=== PATIENT | female | born 1995 | race Caucasian/White ===

== ENCOUNTER 2019-08-21 03:41 | Inpatient (IN) | payer BC ==
[~2019-08-21 03:41] MED LIST: Bupivacaine 0.25% 10 ML SDV ONE
[2019-08-21] MEDS ORDERED: Sodium Chloride 0.9% 10 ML Syringe FLUSH PRN (04:12)
[2019-08-21] MEDS ORDERED: Lidocaine 1% 50 ML MDV INJECT ONE (04:12)
[2019-08-21] MEDS ORDERED: Calcium Carbonate 500 MG Tab.Chew PO PRN (04:12)
[2019-08-21] MEDS ORDERED: Lactated Ringers 1,000 ML IV SCH (04:15)
[2019-08-21] MEDS ORDERED: Oxytocin/Lactated Ringers 10 UNIT/1,000 ML BAG IV SCH ×2 (04:15)
[2019-08-21] MEDS ORDERED: Bupivacaine/fentaNYL/NS 100 ML Bag EPIDUR PRN (07:01)
[2019-08-21] MEDS ORDERED: ePHEDrine 50 MG/ML SDV IVPUSH PRN (07:01)
[2019-08-21] MEDS ORDERED: diphenhydrAMINE 50 MG/ML SDV IVPUSH PRN (07:01)
[2019-08-21] MEDS ORDERED: fentaNYL 100 MCG/2 ML SDV EPIDUR PRN (07:01)
[2019-08-21] MEDS: Nalbuphine 10 MG/ML Syringe IVPUSH PRN ×2 (12:51→16:05)
--- NOTE | 2019-08-21 14:09 | PCM.LDHP ---
L&D History of Present Illness - General Date of Service: 08/21/19 Admit Problem/Dx: Patient Status Order with Admit Dx/Problem 08/21/19 03:49 Patient Status [ADT] Routine Admission Diagnosis/Problem Admission Diagnosis/Problem 08/21/19 13:57 Lisa is a 24-year-old 1 para 0 white female at 7 weeks gestational age with an SHAR of 08/20/2019 who was admitted in the a.m. of 08/21/2019 with SROM and early labor. Source of Information: Patient History Limitations: Reports: No Limitations - History of Present Illness Introduction:: Lisa is a 24-year-old 1 para 0 white female at 7 weeks gestational age with an SHAR of 08/20/2019 who was admitted in the a.m. of 08/21/2019 with SROM and early labor.She reports having apparently had spontaneous rupture membranes at approximately 03 30 this a.m. Gush of fluids followed by continuous leakage thereafter. Upon evaluation in the hospital was noted to have pooling and significant amount of grossly ruptured membrane leakage. She was brandy mildly. Baby has been active. heart tones reassuring. 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 Her SHAR of 08/20/2019 was determined by a certain laststarting 11/13/2018 and supported by at least 2 ultrasounds done during the course of the . Patient denies any STI's, abnormal Pap smears. She had menarche at age 12. Cycles every 30 days. Not using any control at this time conception. Last menstrual period started 11/13/2018 was normal in regard. course. Patient had posterior her care. As she was leaving the time. The first visit was at 8 weeks and 3 days. Ultrasound was performed at 10 weeks and 3 days was consistent with her LMP dating giving an SHAR of 08/20/2019. She is seen on a regular basis. Her weight gain was from 136.8 pounds to 177.4 pounds for approximately 20 pound increase. Her fundal height growth was appropriate. Patient's group B strep screen is negative. She was scheduled for induction on 08/26/2019. She plans to breast-feed. She is okay with epidural in labor and delivery. She does not know the gender of the baby. labs: Blood is AB-. Negative antibody screen. Her hemoglobin at first visit was 13.6 g/dL with platelets at 242,000. Pap smear was negative. Patient is vaccinated for varicella. She is rubella immune. RPR is nonreactive. Urine culture was negative. Hepatitis B surface antigen and HIV assays were both negative. Chlamydia and gonorrhea tests were both negative. Second trimester labs showed hemoglobin of 12.6 g/dL and platelets of 227,000. One- hour GTT was normal at 106. Her antibody screen is negative and patient received her anti-DNA immunoglobulin on 05/31/2019 at approximately 28 weeks. Group B strep screen is negative. Allergies: None Medications: vitamins Past medical history: 1. Fibrocystic breast. Past surgical history: Unremarkable Family history: Mother is alive and well with a history of skin cancer. Father is alive but has Alzheimer's at age 55. Brothers alive and well. Maternal grandmother is at age 69 from breast cancer diagnosed at age 65. Maternal grandfather is alive but has a history of prostate cancer. Paternal grandmother is secondary to history of strokes. Was a smoker. Paternal grandfather is alive, has epilepsy and has had some strokes recently diagnosed. He is in his 80s. There is no known family history of bleeding, clotting disorders. And no anesthesia related issues or related issues. One maternal aunt with history of cervical cancer. Social history: Patient is . is Brett. They recently moved to [place] approximately 1 month ago. She does not use any significant loss of alcohol, drugs or tobacco. Review of systems: In general patient has no complaints. Patient having minimal contractions. Babies been active. Has had findings and symptoms consistent with SROM. Skin: Negative Lungs: No infectious symptoms or shortness of breath Cardiovascular: No chest pain or exercise intolerance Breasts: changes noted.. GI: Negative : changes. Musculoskeletal: Negative Neurological: Negative In general the patient is well-developed, well-nourished, pleasant female of stated age in no acute distress. She is alert 92�3 and is pleasant. Skin is warm dry without lesions. HEENT, neck and back within normal limits. Lungs are clear with good breath sounds in all lung linares. Cardiovascular exam shows regular and rhythm without murmurs. Breast exam is deferred having been done the first pill visit found to be normal and is not repeated at this time. She plans to breast-feed. Abdomen is gravid with last fundal height clinic at 36 weeks centimeters. Genital exam shows cervix to be 3 cm, 80% effaced, soft, mid position, -3 station. Extremities and neurological exam are grossly within normal limits. 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: - Past Surgical History HEENT Surgical History: Reports: Oral Surgery Other HEENT Surgeries/Procedures: [place] teeth-2011 Social & Family History - Family History Family Medical History: Noncontributory - Tobacco Use Smoking Status *Q: Never Smoker Second Hand Smoke Exposure: No - Recreational Drug Use Recreational Drug Use: No H&P Review of Systems - Review of Systems: Review Of Systems: See Below L&D Exam - Exam Exam: See Below - Vital Signs Vital Signs: Last Vital Signs Temp 36.2 C 08/21/19 03:49 Pulse 94 08/21/19 03:49 Resp 16 08/21/19 03:49 BP 140/85 08/21/19 03:49 Pulse Ox Weight: 72.393 kg - Patient Data Lab Results Last 24 hrs: Laboratory Results - last 24 hr 08/21/19 Range/Units 04:28 WBC 9.70 (3.98-10.04) K/mm3 RBC 3.66 L (3.98-5.22) M/mm3 Hgb 12.7 (11.2-15.7) gm/dl Hct 37.1 (34.1-44.9) % MCV 101.4 H (79.4-94.8) fl MCH 34.7 H (25.6-32.2) pg MCHC 34.2 (32.2-35.5) g/dl RDW Std Deviation 45.0 (36.4-46.3) fL Plt Count 201 (182-369) K/mm3 MPV 9.3 L (9.4-12.3) fl Neut % (Auto) 57.4 (34.0-71.1) % Lymph % (Auto) 31.6 (19.3-51.7) % [place] % (Auto) 10.0 (4.7-12.5) % Eos % (Auto) 0.7 (0.7-5.8) Baso % (Auto) 0.2 (0.1-1.2) % Neut # (Auto) 5.56 (1.56-6.13) K/mm3 Lymph # (Auto) 3.07 (1.18-3.74) K/mm3 [place] # (Auto) 0.97 H (0.24-0.36) K/mm3 Eos # (Auto) 0.07 (0.04-0.36) K/mm3 Baso # (Auto) 0.02 (0.01-0.08) K/mm3 Result Diagrams: 08/21/19 04:28 Problem List Initiated/Reviewed/Updated: Yes Orders Last 24hrs: Active Orders 24 hr Category Date Time Status Patient Status [ADT] Routine ADT 08/21/19 03:49 Active Activity as Tolerated [RC] PFP Care 08/21/19 04:13 Active Communication Order [RC] ASDIRECTED Care 08/21/19 04:13 Active Communication Order [RC] ASDIRECTED Care 08/21/19 07:02 Active Cooling Warming Measures [RC] ASDIRECTED Care 08/21/19 07:02 Active Notify Provider [RC] ASDIRECTED Care 08/21/19 07:01 Active Notify Provider [RC] ASDIRECTED Care 08/21/19 07:02 Active Notify Provider [RC] PFP Care 08/21/19 04:13 Active Notify Provider [RC] PRN Care 08/21/19 04:13 Active Oxygen Therapy [RC] ASDIRECTED Care 08/21/19 07:02 Active Peripheral IV Care [RC] . DIRECTED Care 08/21/19 04:13 Active Pulse Oximetry [RC] ASDIRECTED Care 08/21/19 07:02 Active Vital Signs [RC] ASDIRECTED Care 08/21/19 07:02 Active Vital Signs [RC] PER UNIT ROUTINE Care 08/21/19 04:13 Active Regular Diet [DIET] Diet 08/21/19 Breakfast Active RAPID PLASMA REAGIN,RPR [CHEM] Routine Lab 08/21/19 04:28 Received Bupivacaine/fentaNYL/NS [fentaNYL/Bupivacaine/NS 2 MCG- Med 08/21/19 07:01 Active 0.125% 100 ML] 100 ml EPIDUR ASDIRECTED PRN Calcium Carbonate [Tums] Med 08/21/19 04:12 Active 1,000 mg PO Q2H PRN Lactated Ringers [Ringers, Lactated] 1,000 ml Med 08/21/19 04:15 Active IV ASDIRECTED Nalbuphine [Nubain] Med 08/21/19 04:12 Active 10 mg IVPUSH Q2H PRN Oxytocin/Lactated Ringers [Pitocin in LR 10 Units/1,000 Med 08/21/19 04:15 Active ML] 10 unit in 1,000 ml IV .CONTINUOUS Oxytocin/Lactated Ringers [Pitocin in LR 10 Units/1,000 Med 08/21/19 04:15 Active ML] 10 unit in 1,000 ml IV TITRATE Sodium Chloride 0.9% [Saline Flush] Med 08/21/19 04:12 Active 10 ml FLUSH ASDIRECTED PRN diphenhydrAMINE [Benadryl] Med 08/21/19 07:01 Active 25 mg IVPUSH Q6H PRN ePHEDrine [ePHEDrine sulfate] Med 08/21/19 07:01 Active 5 mg IVPUSH ASDIRECTED PRN fentaNYL [Sublimaze] Med 08/21/19 07:01 Active 100 mcg EPIDUR Q3H PRN Electronic Heart Tones Ext w TOCO [WOMSER] Oth 08/21/19 04:13 Ordered Routine Electronic Heart Tones Internal [WOMSER] Per Unit Oth 08/21/19 04:13 Ordered Routine Peripheral IV Insertion Adult [OM.PC] Routine Oth 08/21/19 04:13 Ordered Resuscitation Status Routine Resus Stat 08/21/19 03:49 Ordered Medication Orders Calcium Carbonate/Glycine (Tums) 1,000 mg PO Q2H PRN PRN Reason: Indigestion Diphenhydramine HCl (Benadryl) 25 mg IVPUSH Q6H PRN PRN Reason: pruritis Stop: 08/22/19 23:00 Ephedrine Sulfate (Ephedrine Sulfate) 5 mg IVPUSH ASDIRECTED PRN PRN Reason: Hypotension Stop: 08/22/19 23:00 Fentanyl (Sublimaze) 100 mcg EPIDUR Q3H PRN PRN Reason: Pain Stop: 08/22/19 23:00 Fentanyl/Bupivacaine HCl (Fentanyl/Bupivacaine/Ns 2 Mcg-0.125% 100 Ml) 100 ml EPIDUR ASDIRECTED PRN PRN Reason: Pain Stop: 08/22/19 23:00 Lactated Ringer's (Ringers, Lactated) 1,000 mls @ 100 mls/hr IV ASDIRECTED STEVENSON Last Admin: 08/21/19 09:38 Dose: 100 mls/hr Oxytocin/Lactated Ringer's (Pitocin In Lr 10 Units/1,000 Ml) 10 unit in 1,000 mls @ 12 mls/hr IV TITRATE STEVENSON; Protocol Last Admin: 08/21/19 09:38 Dose: 2 munits/min, 12 mls/hr Oxytocin/Lactated Ringer's (Pitocin In Lr 10 Units/1,000 Ml) 10 unit in 1,000 mls @ 500 mls/hr IV .CONTINUOUS STEVENSON Nalbuphine HCl (Nubain) 10 mg IVPUSH Q2H PRN PRN Reason: Pain Last Admin: 08/21/19 12:51 Dose: 10 mg Sodium Chloride (Saline Flush) 10 ml FLUSH ASDIRECTED PRN PRN Reason: Keep Vein Open Assessment/Plan Comment:: 1. 40-1/7 week intrauterine , SROM with clear amniotic fluid resulting , early labor. 2. Group B strep screen negative 3. Patient is okay with epidural in labor and delivery 4. Patient has a B- blood therefore is a candidate for Rh immunoglobulin therapy if baby proves to be Rh+. 5. Patient is rubella immune. 6. Patient plans to breast-feed. Plan: 1. Possible Pitocin augmentation as indicated 2. Routine labor care 3. Epidural when necessary 4. Support breast-feeding decision 5. CBC and RPR on admission per protocol.
--- NOTE | 2019-08-21 14:18 | PCM.PREANE ---
Preanesthetic Assessment - Procedure Proposed Procedure: Epidural - Anesthesia/Transfusion/Family Hx Anesthesia History: No Prior Anesthesia Family History of Anesthesia Reaction: No Transfusion History: No Prior Transfusion(s) - Review of Systems General: Fatigue (Labor) Pulmonary: No Symptoms Cardiovascular: No Symptoms 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: Abdominal Pain (Labor) Neurological: No Symptoms Other: Reports: None - Physical Assessment Vital Signs: Last Vital Signs Temp 36.2 C 08/21/19 03:49 Pulse 94 08/21/19 03:49 Resp 16 08/21/19 03:49 BP 140/85 08/21/19 03:49 Pulse Ox Height: 1.7 m Weight: 72.393 kg ASA Class: 2 Mental Status: Alert & Oriented x3 Airway Class: Mallampati = 2 Dentition: Reports: Normal Dentition Thyro-Mental Finger Breadths: 3 Mouth Opening Finger Breadths: 3 ROM/Head Extension: Full Lungs: Clear to Auscultation, Normal Respiratory Effort Cardiovascular: Regular Rate, Regular Rhythm - Lab Values: Laboratory Last Values WBC 9.70 K/mm3 (3.98-10.04) 08/21/19 04:28 RBC 3.66 M/mm3 (3.98-5.22) L 08/21/19 04:28 Hgb 12.7 gm/dl (11.2-15.7) 08/21/19 04:28 Hct 37.1 % (34.1-44.9) 08/21/19 04:28 MCV 101.4 fl (79.4-94.8) H 08/21/19 04:28 MCH 34.7 pg (25.6-32.2) H 08/21/19 04:28 MCHC 34.2 g/dl (32.2-35.5) 08/21/19 04:28 RDW Std Deviation 45.0 fL (36.4-46.3) 08/21/19 04:28 Plt Count 201 K/mm3 (182-369) 08/21/19 04:28 MPV 9.3 fl (9.4-12.3) L 08/21/19 04:28 Neut % (Auto) 57.4 % (34.0-71.1) 08/21/19 04:28 Lymph % (Auto) 31.6 % (19.3-51.7) 08/21/19 04:28 [place] % (Auto) 10.0 % (4.7-12.5) 08/21/19 04:28 Eos % (Auto) 0.7 (0.7-5.8) 08/21/19 04:28 Baso % (Auto) 0.2 % (0.1-1.2) 08/21/19 04:28 Neut # (Auto) 5.56 K/mm3 (1.56-6.13) 08/21/19 04:28 Lymph # (Auto) 3.07 K/mm3 (1.18-3.74) 08/21/19 04:28 [place] # (Auto) 0.97 K/mm3 (0.24-0.36) H 08/21/19 04:28 Eos # (Auto) 0.07 K/mm3 (0.04-0.36) 08/21/19 04:28 Baso # (Auto) 0.02 K/mm3 (0.01-0.08) 08/21/19 04:28 - Allergies Allergies/Adverse Reactions: Allergies Allergy/AdvReac Type Severity Reaction Status Date / Time No Known Allergies Allergy Verified 08/21/19 06:08 - Anesthesia Plan Pre-Op Medication Ordered: None - Acknowledgements Anesthesia Type Planned: Epidural Pt an Appropriate Candidate for the Planned Anesthesia: Yes Alternatives and Risks of Anesthesia Discussed w Pt/Guardian: Yes Pt/Guardian Understands and Agrees with Anesthesia Plan: Yes PreAnesthesia Questionnaire - Past Health History Medical/Surgical History: Denies Medical/Surgical History 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 History: Reports: GERD 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: - Past Surgical History HEENT Surgical History: Reports: Oral Surgery Other HEENT Surgeries/Procedures: [place] teeth-2011 - SUBSTANCE USE Smoking Status *Q: Never Smoker Second Hand Smoke Exposure: No Recreational Drug Use History: No - HOME MEDS Home Medications: Home Meds Pnv No.95/Ferrous Fum/Folic AC [ Vitamins Tablet] 1 tab PO DAILY [History] - CURRENT (IN HOUSE) MEDS Current Meds: Current Medications Calcium Carbonate/Glycine (Tums) 1,000 mg PO Q2H PRN PRN Reason: Indigestion Diphenhydramine HCl (Benadryl) 25 mg IVPUSH Q6H PRN PRN Reason: pruritis Stop: 08/22/19 23:00 Ephedrine Sulfate (Ephedrine Sulfate) 5 mg IVPUSH ASDIRECTED PRN PRN Reason: Hypotension Stop: 08/22/19 23:00 Fentanyl (Sublimaze) 100 mcg EPIDUR Q3H PRN PRN Reason: Pain Stop: 08/22/19 23:00 Fentanyl/Bupivacaine HCl (Fentanyl/Bupivacaine/Ns 2 Mcg-0.125% 100 Ml) 100 ml EPIDUR ASDIRECTED PRN PRN Reason: Pain Stop: 08/22/19 23:00 Lactated Ringer's (Ringers, Lactated) 1,000 mls @ 100 mls/hr IV ASDIRECTED STEVENSON Last Admin: 08/21/19 09:38 Dose: 100 mls/hr Oxytocin/Lactated Ringer's (Pitocin In Lr 10 Units/1,000 Ml) 10 unit in 1,000 mls @ 12 mls/hr IV TITRATE STEVENSON; Protocol Last Admin: 08/21/19 09:38 Dose: 2 munits/min, 12 mls/hr Oxytocin/Lactated Ringer's (Pitocin In Lr 10 Units/1,000 Ml) 10 unit in 1,000 mls @ 500 mls/hr IV .CONTINUOUS STEVENSON Nalbuphine HCl (Nubain) 10 mg IVPUSH Q2H PRN PRN Reason: Pain Last Admin: 08/21/19 12:51 Dose: 10 mg Sodium Chloride (Saline Flush) 10 ml FLUSH ASDIRECTED PRN PRN Reason: Keep Vein Open Discontinued Medications Lidocaine HCl (Xylocaine 1%) 50 ml INJECT ONETIME ONE Stop: 08/21/19 04:13
[2019-08-21] MEDS ORDERED: Lidocaine 1% 50 ML MDV ONE (16:46)
--- NOTE | 2019-08-21 17:43 | PCM.SN.2 ---
- Free Text/Narrative Note: Delivery note: Lisa is a 24-year-old 1 para 0 white female at 7 weeks gestational age with an SHAR of 08/20/2019 who was admitted in the a.m. of 08/21/2019 with SROM and early labor.She reports having apparently had spontaneous rupture membranes at approximately 03 30 this a.m. Gush of fluids followed by continuous leakage thereafter. Upon evaluation in the hospital was noted to have pooling and significant amount of grossly ruptured membrane leakage. She was brandy mildly. Baby has been active. heart tones reassuring. She progressed to complete cervical dilation by approximately 1630 hrs. She began pushing and pushed for approximately 35 minutes at which time she delivered a viable, mckeon, female infant with Apgars of 8 and 9, length of 19.25 inches, a weight of 2960 g (pounds, 8 ounces) in a left occiput anterior position at 1705 hrs. on 08/21/2019.. Baby was placed on mom's abdomen. Nose and mouth were bulb suctioned the baby was dried and warmed. Pitocin was increased to 500 mL an hour to facilitate increase in uterine tone and decreased likelihood of bleeding. The umbilical cord was allowed to pulsate times approximately 2-3 minutes and then was clamped �2 and cut by the baby's father Brett. Umbilical cord had 3 blood vessels present within it. Cord blood was obtained. The patient is noted to have a second-degree perineal laceration which was repaired in routine fashion using 3-0 Monocryl suture. The area was anesthetized with lidocaine 1%�approximately 8 mL total. Lidocaine was given prior to the delivery. The placenta delivered in a Weeks presentation at 1715 hrs., appeared intact and complete and was just guarded per patient desire. Patient plans to breast-feed. Her blood loss was 100 mL. Condition: Good.
[2019-08-21] MEDS ORDERED: Acetaminophen 325 MG Tab PO PRN (17:51)
[2019-08-21] MEDS ORDERED: Benzocaine/Menthol 20%-0.5% Spray 56 GM Canister TOP PRN (17:51)
[2019-08-21] MEDS: Witch Hazel Medicated Pads 40/Jar TOP PRN (19:09)
[2019-08-21] MEDS: Ibuprofen 600 MG Tab PO PRN (19:09)
[2019-08-21] MEDS: Docusate Sodium 100 MG Cap PO PRN (19:10)
[2019-08-22] MEDS: Ibuprofen 600 MG Tab PO PRN ×4 (00:39→18:41)
--- NOTE | 2019-08-22 08:38 | PCM.SN.2 ---
- Free Text/Narrative Note: note: Patient is doing well in the period. Minimal lochia, voiding well, ambulated without problems. Nursing without concerns. Patient is afebrile, vital signs are stable Abdomen is flat, soft, uterus is below the umbilicus and is firm and nontender. Legs are nontender. Assessment: recovery going well. Plan: Routine care. Patient be discharged home within the next 24-48 hours.
[2019-08-22] MEDS: Prenatal Multivitamin with Calcium/Folic Acid/Iron Tab PO SCH (09:21)
[2019-08-22] MEDS: Docusate Sodium 100 MG Cap PO PRN (17:40)
--- NOTE | 2019-08-23 06:10 | PCM.DCSUM1 ---
Discharge Summary - Hospital Course Free Text/Narrative:: Lisa is a 24-year-old 1 para 0 white female at 7 weeks gestational age with an SHAR of 08/20/2019 who was admitted in the a.m. of 08/21/2019 with SROM and early labor.She reports having apparently had spontaneous rupture membranes at approximately 03 30 this a.m. Gush of fluids followed by continuous leakage thereafter. Upon evaluation in the hospital was noted to have pooling and significant amount of grossly ruptured membrane leakage. She was brandy mildly. Baby has been active. heart tones reassuring. She progressed to complete cervical dilation by approximately 1630 hrs. She began pushing and pushed for approximately 35 minutes at which time she delivered a viable, mckeon, female infant with Apgars of 8 and 9, length of 19.25 inches, a weight of 2960 g (pounds, 8 ounces) in a left occiput anterior position at 1705 hrs. on 08/21/2019.. Baby was placed on mom's abdomen. Nose and mouth were bulb suctioned the baby was dried and warmed. Pitocin was increased to 500 mL an hour to facilitate increase in uterine tone and decreased likelihood of bleeding. The umbilical cord was allowed to pulsate times approximately 2-3 minutes and then was clamped �2 and cut by the baby's father Brett. Umbilical cord had 3 blood vessels present within it. Cord blood was obtained. The patient is noted to have a second-degree perineal laceration which was repaired in routine fashion using 3-0 Monocryl suture. The area was anesthetized with lidocaine 1%�approximately 8 mL total. Lidocaine was given prior to the delivery. The placenta delivered in a Weeks presentation at 1715 hrs., appeared intact and complete and was just guarded per patient desire. patient is done well. She is having minimal lochia, pain is under good control and she is ambulating well. She is voiding without concerns. Breast -feeding is going reasonably well. She has utilized consultation during her hospital stay. Patient is desiring discharge home. Patient plans to breast-feed. Her blood loss was 100 mL. Condition: Good. Diagnosis: Stroke: No - Discharge Data Discharge Date: 08/23/19 Discharge Disposition: Home, Self-Care 01 Condition: Good - Referral to Home Health Primary Care Physician: Oral Galvan MD - Patient Instructions Diet: Regular Diet as Tolerated (Nursing diet with increased calories and calcium as recommended) Activity: As Tolerated (o intercourse or tampons until bleeding resolves) Driving: May Drive Today Showering/Bathing: May Shower (May take a bath) Notify Provider of: Fever, Increased Pain, Swelling and Redness, Nausea and/or Vomiting - Discharge Plan Home Medications: Home Meds Pnv No.95/Ferrous Fum/Folic AC [ Vitamins Tablet] 1 tab PO DAILY [History] Acetaminophen [Tylenol] 650 mg PO Q4H PRN tablet 08/23/19 [Rx] Ibuprofen [Motrin] 600 mg PO Q4H PRN tablet 08/23/19 [Rx] Referrals: Oral Galvan MD [Primary Care Provider] - (Return to clinic�Dr. Galvan�2 weeks. ) - Discharge Summary/Plan Comment DC Time >30 min.: No Discharge Summary/Plan Comment: Discharge instructions: 1. Discharge home 2. Diet, activity and follow-up discussed with patient. Recommend nursing diet with increased calories and calcium. 3. Precautions given concern increased pain, bleeding, temperature, signs/ symptoms of DVT/PE. 4. Medications per home medication was printed, discussed with and given to the patient. 5. Return to clinic-Dr. Galvan-[facility] in 2 weeks. Diagnosis: Term -delivered Condition: Good - Patient Data Vitals - Most Recent: Last Vital Signs Temp 36.7 C 08/23/19 02:48 Pulse 67 08/23/19 02:48 Resp 16 08/23/19 02:48 BP 115/66 08/23/19 02:48 Pulse Ox 100 08/23/19 02:48 Weight - Most Recent: 72.393 kg Med Orders - Current: Current Medications Acetaminophen (Tylenol) 650 mg PO Q4H PRN PRN Reason: mild pain or fever Benzocaine/Menthol (Dermoplast Pain Relief [place]) 0 gm TOP ASDIRECTED PRN PRN Reason: Perineal Comfort Measure Last Admin: 08/21/19 19:08 Dose: 1 canister Docusate Sodium (Colace) 100 mg PO BID PRN PRN Reason: Constipation Last Admin: 08/22/19 17:40 Dose: 100 mg Ibuprofen (Motrin) 600 mg PO Q4H PRN PRN Reason: Mild pain or fever Last Admin: 08/22/19 18:41 Dose: 600 mg Prenat Multivit/[place]bert/Iron/Folic Ac ( Plus Iron) 1 each PO DAILY STEVENSON Last Admin: 08/22/19 09:21 Dose: 1 each Witch Mary Beth (Tucks) 1 pad TOP ASDIRECTED PRN PRN Reason: Perineal Comfort Measure Last Admin: 08/21/19 19:09 Dose: 1 tub Discontinued Medications Bupivacaine HCl (Sensorcaine-Mpf 0.25%) 10 ml .ROUTE .STK-MED ONE Stop: 08/21/19 00:01 Calcium Carbonate/Glycine (Tums) 1,000 mg PO Q2H PRN PRN Reason: Indigestion Diphenhydramine HCl (Benadryl) 25 mg IVPUSH Q6H PRN PRN Reason: pruritis Stop: 08/22/19 23:00 Ephedrine Sulfate (Ephedrine Sulfate) 5 mg IVPUSH ASDIRECTED PRN PRN Reason: Hypotension Stop: 08/22/19 23:00 Fentanyl (Sublimaze) 100 mcg EPIDUR Q3H PRN PRN Reason: Pain Stop: 08/22/19 23:00 Fentanyl/Bupivacaine HCl (Fentanyl/Bupivacaine/Ns 2 Mcg-0.125% 100 Ml) 100 ml EPIDUR ASDIRECTED PRN PRN Reason: Pain Stop: 08/22/19 23:00 Lactated Ringer's (Ringers, Lactated) 1,000 mls @ 100 mls/hr IV ASDIRECTED STEVENSON Last Admin: 08/21/19 09:38 Dose: 100 mls/hr Oxytocin/Lactated Ringer's (Pitocin In Lr 10 Units/1,000 Ml) 10 unit in 1,000 mls @ 12 mls/hr IV TITRATE STEVENSON; Protocol Last Admin: 08/21/19 09:38 Dose: 2 munits/min, 12 mls/hr Oxytocin/Lactated Ringer's (Pitocin In Lr 10 Units/1,000 Ml) 10 unit in 1,000 mls @ 500 mls/hr IV .CONTINUOUS STEVENSON Lidocaine HCl (Xylocaine 1%) 50 ml INJECT ONETIME ONE Stop: 08/21/19 04:13 Last Admin: 08/21/19 17:11 Dose: 50 ml Lidocaine HCl (Xylocaine 1%) Confirm Administered Dose 50 ml .ROUTE .STK-MED ONE Stop: 08/21/19 16:47 Last Admin: 08/21/19 17:11 Dose: Not Given Nalbuphine HCl (Nubain) 10 mg IVPUSH Q2H PRN PRN Reason: Pain Last Admin: 08/21/19 16:05 Dose: 10 mg Sodium Chloride (Saline Flush) 10 ml FLUSH ASDIRECTED PRN PRN Reason: Keep Vein Open
[2019-08-23] MEDS: Witch Hazel Medicated Pads 40/Jar TOP PRN (08:27)
[2019-08-23] MEDS: Ibuprofen 600 MG Tab PO PRN (08:28)
[2019-08-23] MEDS: Prenatal Multivitamin with Calcium/Folic Acid/Iron Tab PO SCH (09:35)
== END 2019-08-23 11:45 | disposition home or self-care (01) | DRG 560 ==
LOC: JD.OBCHECK 03:41 → JD.OB 03:53 → OBSVTOIN 05:05 → JD.OBCHECK 05:05 → JD.OB 05:05
PROVIDERS: ADMIT Obstetrics & Gynecology; ATTEND Obstetrics & Gynecology
PROC: 10E0XZZ Delivery of Products of Conception, External Approach (ICD-10-PCS; principal; 2019-08-21)
PROC: 0KQM0ZZ Repair Perineum Muscle, Open Approach (ICD-10-PCS; 2019-08-21)
DX: O48.0 Post-term pregnancy (principal); Z3A.40 40 weeks gestation of pregnancy; Z37.0 Single live birth; O70.1 Second degree perineal laceration during delivery
CPT/HCPCS: 36415; 59025; 59409; 85025; 85461; 86592; 86850; 86870; 86900; 86901; A9270-GY; J2001; J2300; J2590; J2790; J3490; J7120

== ENCOUNTER 2022-11-24 06:21 | Inpatient (IN) | payer BC ==
[2022-11-24] MEDS ORDERED: Ondansetron 4 MG/2 ML SDV IVPUSH PRN (06:31)
[2022-11-24] MEDS ORDERED: Lidocaine 1% 50 ML MDV INJECT PRN (06:31)
[2022-11-24] MEDS ORDERED: Oxytocin/Lactated Ringers 10 UNIT/1,000 ML BAG IV SCH ×3 (06:45→19:42)
[2022-11-24 06:50] LABS: BASOPHILS PERCENT AUTO 0.3 % (0.0-1.0); EOSINOPHILS ABSOLUTE AUTO 0.1 K/mm3 (0.0-0.4); EOSINOPHILS PERCENT AUTO 0.6 % (0.0-6.0); HEMATOCRIT 37.8 % (37.0-47.0); HEMOGLOBIN 13.4 gm/dl (12.0-16.0); IMMATURE GRAN ABSOLUTE AUTO 0.02 K/mm3 (0.00-0.05); IMMATURE GRAN PERCENT AUTO 0.2 % (0.0-0.4); LYMPHOCYTES ABSOLUTE AUTO 3.2 K/mm3 (1.0-4.8); LYMPHOCYTES PERCENT AUTO 32.6 % (24.0-44.0); MEAN CORPUSCULAR HEMOGLOBIN 35.4 pg (28.0-32.0); MEAN CORPUSCULAR HGB CONC 35.4 g/dl (32.0-36.0); MEAN CORPUSCULAR VOLUME 99.7 fl (83.0-99.0); MEAN PLATELET VOLUME 9.3 fl (9.4-12.3); MONOCYTES ABSOLUTE AUTO 0.6 K/mm3 (0.0-0.8); MONOCYTES PERCENT AUTO 6.5 % (0.0-8.0); NEUTROPHILS ABSOLUTE AUTO 5.8 K/mm3 (1.8-7.7); NEUTROPHILS PERCENT AUTO 59.8 % (41.0-71.0); PLATELET COUNT,PLT 182 K/mm3 (150-400); RED BLOOD CELL COUNT 3.79 M/mm3 (4.10-5.30); WHITE BLOOD CELL COUNT,WBC 9.71 K/mm3 (3.9-11.3)
[2022-11-24] MEDS: Lactated Ringers 1,000 ML IV SCH ×3 (09:38→16:19)
[2022-11-24] MEDS: Nalbuphine 10 MG/0.5 ML Syringe IVPUSH PRN ×2 (11:00→12:50)
[2022-11-24] MEDS ORDERED: fentaNYL 100 MCG/2 ML SDV EPIDUR PRN (15:34)
[2022-11-24] MEDS ORDERED: Bupivacaine/fentaNYL/NS 100 ML Bag EPIDUR PRN (15:34)
[2022-11-24] MEDS ORDERED: ePHEDrine 50 MG/ML SDV IVPUSH PRN (15:34)
[2022-11-24] MEDS ORDERED: diphenhydrAMINE 50 MG/ML SDV IVPUSH PRN (15:34)
[2022-11-24] MEDS ORDERED: Simethicone 80 MG Tab.Chew PO PRN (19:42)
[2022-11-24] MEDS ORDERED: Magnesium Hydroxide 400 MG/5 ML Susp 30 ML Cup PO PRN (19:42)
[2022-11-24] MEDS ORDERED: Docusate Sodium 100 MG Cap PO PRN (19:42)
[2022-11-24] MEDS ORDERED: Benzocaine/Menthol 20%-0.5% Spray 78 GM Cannister TOP PRN (19:42)
[2022-11-24] MEDS ORDERED: Witch Hazel Medicated Pads 40/Jar TOP PRN (19:42)
[2022-11-24] MEDS ORDERED: Hydrocortisone Acetate 25 MG Supp RECTAL PRN (19:42)
[2022-11-24] MEDS: Ibuprofen 600 MG Tab PO PRN (21:20)
[2022-11-25] MEDS ORDERED: Bupivacaine 0.25% 10 ML SDV ONE
[2022-11-25] MEDS: Ibuprofen 600 MG Tab PO PRN ×2 (02:56→11:16)
[2022-11-25] MEDS: Acetaminophen 325 MG Tab PO PRN ×2 (06:09→11:16)
[2022-11-25] MEDS ORDERED: Prenatal Multivitamin with Calcium/Folic Acid/Iron Tab PO SCH (09:00)
== END 2022-11-25 15:45 | disposition home or self-care (01) | DRG 560 ==
LOC: JD.OB 06:21 → OBSVTOIN 18:33 → JD.OB 18:33
PROVIDERS: ADMIT Obstetrics & Gynecology; ATTEND Obstetrics & Gynecology
PROC: 10E0XZZ Delivery of Products of Conception, External Approach (ICD-10-PCS; principal; 2022-11-24)
PROC: 10907ZC Drainage of Amniotic Fluid, Therapeutic from Products of Conception, Via Natural or Artificial Opening (ICD-10-PCS; 2022-11-24)
PROC: 0KQM0ZZ Repair Perineum Muscle, Open Approach (ICD-10-PCS; 2022-11-24)
PROC: 0UQMXZZ Repair Vulva, External Approach (ICD-10-PCS; 2022-11-24)
PROC: 3E0R3BZ Introduction of Anesthetic Agent into Spinal Canal, Percutaneous Approach (ICD-10-PCS; 2022-11-24)
PROC: 00HU33Z Insertion of Infusion Device into Spinal Canal, Percutaneous Approach (ICD-10-PCS; 2022-11-24)
PROC: 3E0334Z Introduction of Serum, Toxoid and Vaccine into Peripheral Vein, Percutaneous Approach (ICD-10-PCS; 2022-11-24)
DX: O26.893 Other specified pregnancy related conditions, third trimester (principal); O99.814 Abnormal glucose complicating childbirth; Z37.0 Single live birth; O70.1 Second degree perineal laceration during delivery; O71.82 Other specified trauma to perineum and vulva; O69.81X0 Labor and delivery complicated by cord around neck, without compression, not applicable or unspecified; Z3A.40 40 weeks gestation of pregnancy; Z67.31 Type AB blood, Rh negative
CPT/HCPCS: 36415; 51702; 59025; 59409; 85025; 85461; 86592; 86850; 86870; 86900; 86901; A9270-GY; J2300; J2590; J2790; J3010; J3490; J7120